=== PATIENT | male | born 1935 | race Caucasian/White ===

== ENCOUNTER → 2023-10-06 14:48 | Outpatient (CLI) | payer MEDICARE, OTHER, SELFPAY | PROVIDERS: Referring Provider Nurse Practitioner; Visit Provider Surgery | DX: L97.412 Non-pressure chronic ulcer of right heel and midfoot with fat layer exposed (principal); L97.512 Non-pressure chronic ulcer of other part of right foot with fat layer exposed; I73.9 Peripheral vascular disease, unspecified; I87.2 Venous insufficiency (chronic) (peripheral); R23.4 Changes in skin texture; G62.9 Polyneuropathy, unspecified | CPT/HCPCS: 11042; 99204; 99214 ==

== ENCOUNTER → 2023-10-10 09:47 | Outpatient (CLI) | payer MEDICARE, OTHER, SELFPAY | LOC: WC 09:59 | PROVIDERS: Referring Provider Internal Medicine; Visit Provider Surgery | DX: L97.412 Non-pressure chronic ulcer of right heel and midfoot with fat layer exposed (principal); L97.512 Non-pressure chronic ulcer of other part of right foot with fat layer exposed; G62.9 Polyneuropathy, unspecified; L84 Corns and callosities; L53.9 Erythematous condition, unspecified | CPT/HCPCS: 99213 ==

== ENCOUNTER → 2023-10-13 13:49 | Outpatient (CLI) | payer MEDICARE, OTHER, SELFPAY | LOC: WC 13:51 | PROVIDERS: Referring Provider Internal Medicine; Visit Provider Surgery | DX: L97.412 Non-pressure chronic ulcer of right heel and midfoot with fat layer exposed (principal); L84 Corns and callosities; I73.9 Peripheral vascular disease, unspecified; I87.2 Venous insufficiency (chronic) (peripheral); G62.9 Polyneuropathy, unspecified | CPT/HCPCS: 11042 ==

== ENCOUNTER → 2023-10-17 09:57 | Outpatient (CLI) | payer MEDICARE, OTHER, SELFPAY | LOC: WC 10-18 10:08 | PROVIDERS: Referring Provider Internal Medicine; Visit Provider Surgery | DX: L97.412 Non-pressure chronic ulcer of right heel and midfoot with fat layer exposed (principal); G62.9 Polyneuropathy, unspecified; L84 Corns and callosities | CPT/HCPCS: 99212 ==

== ENCOUNTER → 2023-10-20 14:29 | Outpatient (CLI) | payer MEDICARE, OTHER, SELFPAY | LOC: WC 14:43 | PROVIDERS: Referring Provider Internal Medicine; Visit Provider Surgery | DX: L97.412 Non-pressure chronic ulcer of right heel and midfoot with fat layer exposed (principal); L84 Corns and callosities; I73.9 Peripheral vascular disease, unspecified; I87.2 Venous insufficiency (chronic) (peripheral); G62.9 Polyneuropathy, unspecified | CPT/HCPCS: 15275; Q4196 ==

== ENCOUNTER → 2023-10-27 14:10 | Outpatient (CLI) | payer MEDICARE, OTHER, SELFPAY | LOC: WC 14:13 | PROVIDERS: Referring Provider Internal Medicine; Visit Provider Surgery | DX: L97.412 Non-pressure chronic ulcer of right heel and midfoot with fat layer exposed (principal); L84 Corns and callosities; G62.9 Polyneuropathy, unspecified; I73.9 Peripheral vascular disease, unspecified; I87.2 Venous insufficiency (chronic) (peripheral) | CPT/HCPCS: 11042 ==